=== PATIENT | male | born 2000 | race Asian ===

== ENCOUNTER 2020-03-14 21:08 | Inpatient (IN) | payer MEDICAID, OTHER ==
[~2020-03-14] VITALS: Ht 172.7 cm; Wt 75.0 kg
[~2020-03-14 21:08] MED LIST: ACET1TAB12 PO
[2020-03-14] MEDS ORDERED: ondansetron/PF 4mg/2ml inj IV ONE (21:50)
[2020-03-14] MEDS ORDERED: morphine 4 MG/ML inj SYRINge IV ONE (21:50)
[2020-03-14] MEDS ORDERED: ketorolac tromethamine 15mg/ml inj. IV ONE (22:10)
[2020-03-14 22:11] LABS: CLARITY,URINE CLEAR (Clear); COLOR,URINE YELLOW (Yellow); GLUCOSE, URINE NEGATIVE (Neg); KETONES,URINE 15 mg/dl (Neg); LEUKOCYTE ESTERASE ,URINE NEGATIVE (Neg); NITRITES, URINE NEGATIVE (Neg); OCCULT BLOOD,URINE TRACE-INTACT (Neg); PROTEIN,URINE 30 mg/dl (Neg)
[2020-03-14 22:12] LABS: BASOPHILS % (AUTO) 0.3 % (0-1); EOSINOPHILS % (AUTO) 0 % (0-6); HEMATOCRIT 40.9 % (42.0-52.0); HEMOGLOBIN 13.3 g/dl (14.0-17.9); LYMPHOCYTES # (AUTO) 1.1 X10'3 (1.1-4.8); LYMPHOCYTES % (AUTO) 7.2 % (21-51); MEAN CORPUSCULAR HEMOGLOBIN 24.7 PG (27.0-31.0); MEAN CORPUSCULAR HGB CONC 32.6 g/dL (33.0-36.5); MEAN CORPUSCULAR VOLUME 75.8 FL (78-98); MEAN PLATELET VOLUME 8.2 FL (7.4-10.4); MONOCYTES # (AUTO) 1.6 X10'3 (0-0.9); MONOCYTES % (AUTO) 10.4 % (2-12); NEUTROPHILS # (AUTO) 12.5 X10'3 (1.8-7.7); NEUTROPHILS % (AUTO) 82.1 % (42-75); PLATELET COUNT 243 X10'3 (140-440); RED CELL DISTRIBUTION WIDTH 13.8 % (11.5-14.5); WHITE BLOOD COUNT 15.2 X10'3 (4.5-11.0)
[2020-03-14 22:15] LABS: UA COLLECTION TYPE URINAL
[2020-03-14 22:16] LABS: BACTERIA,URINE NONE SEEN /HPF (Neg); RBC,URINE 0-2 /HPF (0-2); SQUAMOUS EPITHELIAL CELL,UR FEW /LPF (FEW); WBC,URINE NONE SEEN /HPF (0-4)
[2020-03-14 22:30] LABS: ALANINE AMINOTRANSFERASE 23 U/L (12-78); ALBUMIN 3.8 G/DL (3.4-5.0); ALBUMIN/GLOBULIN RATIO 0.8 (1.1-1.5); ALKALINE PHOSPHATASE 76 IU/L (20-180); ANION GAP 12 (8-16); ASPARTATE AMINO TRANSFERASE 23 U/L (10-37); BILIRUBIN,TOTAL 1.2 MG/DL (0.1-1.0); BLOOD UREA NITROGEN 12 MG/DL (7-18); BUN/CREATININE RATIO 8.6 (5.4-32.0); CHLORIDE 98 MMOL/L (99-107); GLUCOSE 123 MG/DL (70-104); LIPASE 68 U/L (73-393); POTASSIUM 3.4 MMOL/L (3.5-5.1); SODIUM 134 MMOL/L (135-145); TOTAL CARBON DIOXIDE 23.6 MMOL/L (24-32); TOTAL PROTEIN 8.7 G/DL (6.4-8.2); eGFR 65 ML/MIN
--- NOTE | 2020-03-14 22:34 | NUR ---
Pt returned from CT. He asked for a blanket, given a sheet due to temp of 101.5 F. AISHWARYA Ortega gave verbal order for 15mg toradol IVP and to maintain NPO.
[2020-03-14] MEDS ORDERED: normal saline 1000ML IV soln IVB ONE ×2 (22:40→22:50)
[2020-03-14] MEDS ORDERED: NO HOME MEDS (22:43)
[2020-03-14] MEDS ORDERED: morphine 2 MG/ML inj. syringe IV ONE (22:55)
[2020-03-14] MEDS: normal saline 1000ml 1,000 ML IV SCH (23:27)
[2020-03-14] MEDS ORDERED: potassium CL 10mEq/100ml bag 100 ML IV PRN ×2 (23:30)
[2020-03-14] MEDS ORDERED: potassium Cl 20 mEq SR tablet PO PRN ×2 (23:30)
[2020-03-14] MEDS ORDERED: morphine 2 MG/ML inj. syringe IV PRN (23:30)
[2020-03-15] VITALS (28 sets, daily range): BP systolic 91–119; BP diastolic 46–65
[2020-03-15] MEDS ORDERED: ketorolac tromethamine 15mg/ml inj. IV ONE
[2020-03-15] MEDS ORDERED: piperacillin/tazo 3.375gm/50ml 50 ML IV SCH
--- NOTE | 2020-03-15 00:15 | NUR ---
PATIENT ARRIVED ON THE UNIT STILL PAINFUL. ASSUMED CARE AND REPORT RECEIVED FROM KYRA MONTILLA IN ER. WILL CONTINUE TO MONITOR PATIENT AND ADMINISTER MEDICATION ORDERED BY MD.
[2020-03-15] MEDS: morphine 2 MG/ML inj. syringe IV PRN ×5 (03:44→23:21)
[2020-03-15 04:53] LABS: BASOPHILS % (AUTO) 0.1 % (0-1); EOSINOPHILS % (AUTO) 0 % (0-6); HEMATOCRIT 39.1 % (42.0-52.0); HEMOGLOBIN 12.3 g/dl (14.0-17.9); LYMPHOCYTES # (AUTO) 1.5 X10'3 (1.1-4.8); MEAN CORPUSCULAR HEMOGLOBIN 24.1 PG (27.0-31.0); MEAN CORPUSCULAR HGB CONC 31.5 g/dL (33.0-36.5); MEAN CORPUSCULAR VOLUME 76.5 FL (78-98); MEAN PLATELET VOLUME 8.5 FL (7.4-10.4); MONOCYTES # (AUTO) 1.5 X10'3 (0-0.9); NEUTROPHILS # (AUTO) 13.7 X10'3 (1.8-7.7); NEUTROPHILS % (AUTO) 81.9 % (42-75); PLATELET COUNT 237 X10'3 (140-440); RED BLOOD COUNT 5.11 X10'6 (4.70-6.10); RED CELL DISTRIBUTION WIDTH 14.1 % (11.5-14.5); WHITE BLOOD COUNT 16.8 X10'3 (4.5-11.0)
[2020-03-15] MEDS: normal saline 1000ml 1,000 ML IV SCH ×2 (05:03→19:28)
[2020-03-15 05:07] LABS: ALANINE AMINOTRANSFERASE 20 U/L (12-78); ALBUMIN 3.2 G/DL (3.4-5.0); ALBUMIN/GLOBULIN RATIO 0.7 (1.1-1.5); ALKALINE PHOSPHATASE 66 IU/L (20-180); ANION GAP 8 (8-16); ASPARTATE AMINO TRANSFERASE 17 U/L (10-37); BILIRUBIN,TOTAL 1.2 MG/DL (0.1-1.0); BLOOD UREA NITROGEN 8 MG/DL (7-18); BUN/CREATININE RATIO 5.2 (5.4-32.0); CALCIUM 8.2 MG/DL (8.5-10.1); CHLORIDE 102 MMOL/L (99-107); CREATININE 1.53 MG/DL (0.60-1.10); GLUCOSE 116 MG/DL (70-104); POTASSIUM 3.7 MMOL/L (3.5-5.1); SODIUM 137 MMOL/L (135-145); TOTAL CARBON DIOXIDE 26.9 MMOL/L (24-32); TOTAL PROTEIN 7.8 G/DL (6.4-8.2); eGFR 59 ML/MIN
--- NOTE | 2020-03-15 06:28 | NUR ---
Problems reprioritized. Patient report given, questions answered & plan of care reviewed with NISHANT MONTILLA.
[2020-03-15] MEDS ORDERED: acetaminophen 325mg tablet PO ONE (06:40)
--- NOTE | 2020-03-15 06:41 | NUR ---
Pt. has a fever. Called Jerrell to obtain Tylenol order. Jerrell stated give one time tyelnol "after making sure that it was ok with charge nurse to give before surgery." Spoke with OR charge nurse- states operation planned for around 10-11am. States to call anesthesiologist regarding Tylenol at [phone] - [place].
[2020-03-15] MEDS: K and/or MAG REPLACEMENT MC SCH ×2 (08:00→19:21)
[2020-03-15] MEDS: piperacillin/tazo 3.375gm/50ml 50 ML IV SCH ×3 (08:23→23:21)
--- NOTE | 2020-03-15 11:15 | NUR ---
PT. REMOVED OFF FLOOR TO GO TO OR.
[2020-03-15] MEDS ORDERED: BUPIVAcaine/PF 2.5 mg/ml (0.25%) 30ml vial ONE (12:10)
[2020-03-15] MEDS ORDERED: famotidine/PF 10 mg/ml inj IV ONE (12:16)
[2020-03-15] MEDS ORDERED: midazolam 2 mg/2 ml injection ONE (12:20)
[2020-03-15] MEDS ORDERED: fentaNYL /PF 50mcg/ml 5ml ampule ONE (12:22)
[2020-03-15] MEDS ORDERED: ceFOXitin 1000 MG inj ONE ×2 (12:48)
[2020-03-15] MEDS ORDERED: ondansetron/PF 4mg/2ml inj ONE (12:48)
[2020-03-15] MEDS ORDERED: dexamethasone sod phosphate 4mg/ml inj. ONE (12:48)
[2020-03-15] MEDS ORDERED: glycopyrrolate 0.2mg/ml inj ONE (12:51)
[2020-03-15] MEDS ORDERED: neostigmine methylsulfate 1 MG/ML 10ml vial ONE (12:51)
--- NOTE | 2020-03-15 13:20 | NUR ---
RECEIVED FROM OR VIA BED ACCOMPANIED BY ANESTHESIOLOGIST DR HECTOR, REPORT GIVEN. PT DROWSY BUT AROUSES WITH NO COMPLAINT OF PAIN AT THIS TIME. 20 GAUGE PIV R AC PATENT AND RUNNING LR AT 100 ML/HR. LG BANDAID DRESSING X 3 TO ABD CDI, ABD SOFT, SKIN PINK AND WARM, GOOD CAP REFILL, GOOD PERIPHERAL PULSES, VSS, SCDS ON. RESTING COMFORTABLY.
[2020-03-15] MEDS ORDERED: acetaminophen 1,000mg/100ml IV 100 ML IV PRN (13:40)
[2020-03-15] MEDS ORDERED: morphine 2 MG/ML inj. syringe IV PRN (13:40)
[2020-03-15] MEDS ORDERED: ondansetron/PF 4mg/2ml inj IV PRN (13:40)
[2020-03-15] MEDS ORDERED: ringers solution, lacted 1,000 ML IV SCH (13:40)
[2020-03-15] MEDS ORDERED: proCHLORperazine 10 MG/2 ml inj IV PRN (13:40)
[2020-03-15] MEDS ORDERED: morphine 4 MG/ML inj SYRINge IV PRN (13:40)
[2020-03-15] MEDS ORDERED: meperidine/PF 25mg/ml syringe IV PRN ×2 (13:40)
[2020-03-15] MEDS: meperidine/PF 25mg/ml syringe IV PRN ×2 (14:19→14:42)
--- NOTE | 2020-03-15 15:40 | NUR ---
TRANSFERRED VIA BED ON 4 L O2, REPORT GIVEN. PT DROWSY BUT AROUSES WITH COMPLAINT OF PAIN AT A LEVEL 2 AT THIS TIME. 20 GAUGE PIV R AC PATENT AND RUNNING LR AT 100 ML/HR. LG BANDAID DRESSING X 3 TO ABD CDI, ABD SOFT, SKIN PINK AND WARM, GOOD CAP REFILL, GOOD PERIPHERAL PULSES, VSS, SCDS ON. RESTING COMFORTABLY. TOLERATING FLUIDS
--- NOTE | 2020-03-15 18:23 | NUR ---
GAVE REPORT TO PRUDENCE ROLDAN.
--- NOTE | 2020-03-15 18:33 | NUR ---
Patient in room [facility]. I have received report from NISHANT MONTILLA and had the opportunity to ask questions and assume patient care.
[2020-03-16] VITALS (7 sets, daily range): BP systolic 100–119; BP diastolic 56–78
[2020-03-16] MEDS: normal saline 1000ml 1,000 ML IV SCH ×2 (03:58→14:35)
[2020-03-16] MEDS: morphine 2 MG/ML inj. syringe IV PRN ×5 (04:01→22:47)
[2020-03-16 05:22] LABS: BASOPHILS % (AUTO) 0.1 % (0-1); EOSINOPHILS % (AUTO) 0 % (0-6); LYMPHOCYTES # (AUTO) 0.8 X10'3 (1.1-4.8); LYMPHOCYTES % (AUTO) 5.1 % (21-51); MONOCYTES # (AUTO) 1.3 X10'3 (0-0.9)
[2020-03-16 05:25] LABS: HEMATOCRIT 34.1 % (42.0-52.0); HEMOGLOBIN 10.9 g/dl (14.0-17.9); MEAN CORPUSCULAR HEMOGLOBIN 24.3 PG (27.0-31.0); MEAN CORPUSCULAR HGB CONC 32.1 g/dL (33.0-36.5); MEAN CORPUSCULAR VOLUME 75.9 FL (78-98); MEAN PLATELET VOLUME 8.7 FL (7.4-10.4); MONOCYTES % (AUTO) 8.6 % (2-12); NEUTROPHILS # (AUTO) 13.3 X10'3 (1.8-7.7); NEUTROPHILS % (AUTO) 86.2 % (42-75); PLATELET COUNT 212 X10'3 (140-440); RED CELL DISTRIBUTION WIDTH 14.3 % (11.5-14.5); WHITE BLOOD COUNT 15.4 X10'3 (4.5-11.0)
[2020-03-16 05:40] LABS: ALANINE AMINOTRANSFERASE 15 U/L (12-78); ALBUMIN 2.6 G/DL (3.4-5.0); ALBUMIN/GLOBULIN RATIO 0.6 (1.1-1.5); ALKALINE PHOSPHATASE 51 IU/L (20-180); ANION GAP 8 (8-16); ASPARTATE AMINO TRANSFERASE 13 U/L (10-37); BILIRUBIN,TOTAL 0.6 MG/DL (0.1-1.0); BLOOD UREA NITROGEN 9 MG/DL (7-18); BUN/CREATININE RATIO 7.2 (5.4-32.0); CALCIUM 8.7 MG/DL (8.5-10.1); CHLORIDE 105 MMOL/L (99-107); CREATININE 1.25 MG/DL (0.60-1.10); GLUCOSE 150 MG/DL (70-104); POTASSIUM 4.1 MMOL/L (3.5-5.1); SODIUM 138 MMOL/L (135-145); TOTAL CARBON DIOXIDE 25.2 MMOL/L (24-32); eGFR 74 ML/MIN
--- NOTE | 2020-03-16 06:15 | NUR ---
Problems reprioritized. Patient report given, questions answered & plan of care reviewed with NISHANT MONTILLA.
[2020-03-16] MEDS: K and/or MAG REPLACEMENT MC SCH ×2 (08:00→20:00)
[2020-03-16] MEDS: piperacillin/tazo 3.375gm/50ml 50 ML IV SCH ×2 (09:07→16:40)
--- NOTE | 2020-03-16 10:01 | NUR ---
Pt. refusing to walk/ambulate. Educated on the benefits of ambulation. Pain is controlled at this moment. Pt. states he will walk at 11 am. Encouraged to ambulate 3x before 7pm.
--- NOTE | 2020-03-16 18:26 | NUR ---
GAVE REPORT TO PRUDENCE ROLDAN.
--- NOTE | 2020-03-16 18:32 | NUR ---
Patient in room [facility]. I have received report from NISHANT MONTILLA and had the opportunity to ask questions and assume patient care.
[2020-03-17] MEDS: piperacillin/tazo 3.375gm/50ml 50 ML IV SCH ×4 (00:18→23:46)
[2020-03-17] MEDS: normal saline 1000ml 1,000 ML IV SCH ×3 (00:24→18:43)
[2020-03-17 00:33] VITALS: BP 106/70
[2020-03-17 06:26] LABS: BASOPHILS % (AUTO) 0.2 % (0-1); EOSINOPHILS % (AUTO) 0.1 % (0-6); HEMATOCRIT 34.2 % (42.0-52.0); LYMPHOCYTES # (AUTO) 1.6 X10'3 (1.1-4.8); LYMPHOCYTES % (AUTO) 12.3 % (21-51); MEAN CORPUSCULAR HEMOGLOBIN 24.6 PG (27.0-31.0); MEAN CORPUSCULAR HGB CONC 32.3 g/dL (33.0-36.5); MEAN CORPUSCULAR VOLUME 76.2 FL (78-98); MEAN PLATELET VOLUME 8.2 FL (7.4-10.4); MONOCYTES # (AUTO) 1.3 X10'3 (0-0.9); MONOCYTES % (AUTO) 10.2 % (2-12); NEUTROPHILS # (AUTO) 9.9 X10'3 (1.8-7.7); NEUTROPHILS % (AUTO) 77.2 % (42-75); PLATELET COUNT 261 X10'3 (140-440); RED BLOOD COUNT 4.49 X10'6 (4.70-6.10); RED CELL DISTRIBUTION WIDTH 14.1 % (11.5-14.5); WHITE BLOOD COUNT 12.9 X10'3 (4.5-11.0)
--- NOTE | 2020-03-17 06:28 | NUR ---
Problems reprioritized. Patient report given, questions answered & plan of care reviewed with Dai Cantu.
--- NOTE | 2020-03-17 06:29 | NUR ---
Patient in room [facility]. I have received report from ROLDAN Barraza and had the opportunity to ask questions and assume patient care.
[2020-03-17 06:32] LABS: ALANINE AMINOTRANSFERASE 20 U/L (12-78); ALBUMIN 2.4 G/DL (3.4-5.0); ALBUMIN/GLOBULIN RATIO 0.6 (1.1-1.5); ALKALINE PHOSPHATASE 44 IU/L (20-180); ANION GAP 6 (8-16); ASPARTATE AMINO TRANSFERASE 16 U/L (10-37); BILIRUBIN,TOTAL 0.5 MG/DL (0.1-1.0); BLOOD UREA NITROGEN 12 MG/DL (7-18); BUN/CREATININE RATIO 8.8 (5.4-32.0); CALCIUM 8.6 MG/DL (8.5-10.1); CHLORIDE 108 MMOL/L (99-107); CREATININE 1.36 MG/DL (0.60-1.10); GLUCOSE 110 MG/DL (70-104); POTASSIUM 3.8 MMOL/L (3.5-5.1); SODIUM 141 MMOL/L (135-145); TOTAL CARBON DIOXIDE 26.8 MMOL/L (24-32); TOTAL PROTEIN 6.4 G/DL (6.4-8.2); eGFR 68 ML/MIN
[2020-03-17] MEDS: morphine 2 MG/ML inj. syringe IV PRN (07:21)
[2020-03-17 07:30] VITALS: BP 114/68
[2020-03-17] MEDS: K and/or MAG REPLACEMENT MC SCH ×2 (08:00→20:00)
[2020-03-17] MEDS: ondansetron/PF 4mg/2ml inj IV PRN (10:06)
[2020-03-17 12:00] VITALS: BP 109/57
[2020-03-17] MEDS: HYDROcodone/acetaminophen 10/325mg tab PO PRN ×2 (12:35→18:43)
--- NOTE | 2020-03-17 18:48 | NUR ---
Problems reprioritized. Patient report given, questions answered & plan of care reviewed with ROLDAN Lovell. Pt had temp of 100 cooling measures provided. medicated for pain x3 this shift. c/o having loose stools x4, diet advance to full liquids.
--- NOTE | 2020-03-17 18:50 | NUR ---
Patient in room [facility]. I have received report from JOAQUIN MONTILLA and had the opportunity to ask questions and assume patient care.
[2020-03-17 19:32] VITALS: BP 127/78
[2020-03-17] MEDS: lactobacillus rhamnosus 10,000 MMU CELLS/CAPSULE PO SCH (20:16)
--- NOTE | 2020-03-17 23:20 | NUR ---
CALLED DR. BAIN AND WAS INFORMED ABOUT PATIENT FEBRILE T 102.8 WITH ORDER TO GIVE TYLENOL 650MG Q4H PRN FOR TEMP 101.5 AND ABOVE.
[2020-03-17 23:30] VITALS: BP 117/73
[2020-03-17] MEDS: acetaminophen 325mg tablet PO PRN (23:46)
[2020-03-18] MEDS: HYDROcodone/acetaminophen 10/325mg tab PO PRN ×4 (04:15→22:21)
[2020-03-18] MEDS: normal saline 1000ml 1,000 ML IV SCH ×2 (04:23→16:37)
--- NOTE | 2020-03-18 06:00 | NUR ---
Patient in room [facility]. I have received report from Liliya MONTILLA and had the opportunity to ask questions and assume patient care.
[2020-03-18 06:04] LABS: BASOPHILS % (AUTO) 0.2 % (0-1); EOSINOPHILS # (AUTO) 0.2 X10'3 (0-0.9); EOSINOPHILS % (AUTO) 1.5 % (0-6); HEMATOCRIT 36.2 % (42.0-52.0); HEMOGLOBIN 11.7 g/dl (14.0-17.9); LYMPHOCYTES # (AUTO) 1.7 X10'3 (1.1-4.8); LYMPHOCYTES % (AUTO) 15.4 % (21-51); MEAN CORPUSCULAR HEMOGLOBIN 24.6 PG (27.0-31.0); MEAN CORPUSCULAR HGB CONC 32.3 g/dL (33.0-36.5); MEAN CORPUSCULAR VOLUME 76.2 FL (78-98); MEAN PLATELET VOLUME 8.4 FL (7.4-10.4); MONOCYTES # (AUTO) 2.3 X10'3 (0-0.9); MONOCYTES % (AUTO) 21.3 % (2-12); NEUTROPHILS # (AUTO) 6.8 X10'3 (1.8-7.7); NEUTROPHILS % (AUTO) 61.6 % (42-75); PLATELET COUNT 295 X10'3 (140-440); RED BLOOD COUNT 4.75 X10'6 (4.70-6.10); RED CELL DISTRIBUTION WIDTH 14.4 % (11.5-14.5)
--- NOTE | 2020-03-18 06:23 | NUR ---
Problems reprioritized. Patient report given, questions answered & plan of care reviewed with TORI MONTILLA.
[2020-03-18 06:26] LABS: ALANINE AMINOTRANSFERASE 86 U/L (12-78); ALBUMIN 2.5 G/DL (3.4-5.0); ALBUMIN/GLOBULIN RATIO 0.6 (1.1-1.5); ALKALINE PHOSPHATASE 64 IU/L (20-180); ANION GAP 11 (8-16); ASPARTATE AMINO TRANSFERASE 59 U/L (10-37); BILIRUBIN,TOTAL 1.7 MG/DL (0.1-1.0); BLOOD UREA NITROGEN 5 MG/DL (7-18); BUN/CREATININE RATIO 3.9 (5.4-32.0); CHLORIDE 103 MMOL/L (99-107); CREATININE 1.28 MG/DL (0.60-1.10); GLUCOSE 106 MG/DL (70-104); POTASSIUM 3.3 MMOL/L (3.5-5.1); SODIUM 138 MMOL/L (135-145); TOTAL CARBON DIOXIDE 24.2 MMOL/L (24-32); TOTAL PROTEIN 6.7 G/DL (6.4-8.2); eGFR 72 ML/MIN
[2020-03-18 07:26] VITALS: BP 106/62
[2020-03-18] MEDS: piperacillin/tazo 3.375gm/50ml 50 ML IV SCH ×2 (07:31→16:30)
[2020-03-18] MEDS: ondansetron/PF 4mg/2ml inj IV PRN (07:31)
[2020-03-18] MEDS: lactobacillus rhamnosus 10,000 MMU CELLS/CAPSULE PO SCH ×2 (07:31→20:27)
[2020-03-18] MEDS: morphine 2 MG/ML inj. syringe IV PRN (07:31)
[2020-03-18] MEDS: K and/or MAG REPLACEMENT MC SCH ×2 (07:45→20:00)
[2020-03-18 07:56] LABS: TOTAL CELLS COUNTED 100
[2020-03-18 07:57] LABS: MICROCYTOSIS 1+; PLATELET ESTIMATE NORMAL
[2020-03-18 07:58] LABS: POLYCHROMASIA FEW
[2020-03-18 11:25] VITALS: BP_SYST 101; BP_SYST 127; BP_DIAS 55; BP_DIAS 76
[2020-03-18] MEDS ORDERED: potassium Cl 20 mEq SR tablet PO PRN (11:35)
[2020-03-18] MEDS ORDERED: magnesium 4gm in 100ml NS 100 ML IV PRN (11:35)
[2020-03-18] MEDS ORDERED: magnesium Cl slow-release 64mg tablet PO PRN (11:35)
[2020-03-18] MEDS ORDERED: potassium CL 10mEq/100ml bag 100 ML IV PRN (11:35)
[2020-03-18] MEDS: potassium Cl 20 mEq SR tablet PO PRN ×3 (11:53→20:27)
[2020-03-18] MEDS ORDERED: docusate sod 100mg capsule PO PRN (17:15)
--- NOTE | 2020-03-18 18:00 | NUR ---
Patient in room [facility]. I have received report from Tanna MONTILLA and had the opportunity to ask questions and assume patient care.
--- NOTE | 2020-03-18 18:16 | NUR ---
Problems reprioritized. Patient report given, questions answered & plan of care reviewed with Lesly MONTILLA.
--- NOTE | 2020-03-18 19:21 | NUR ---
called dr melchor to report a temp of 102.7 he said to ordered blood cultures
[2020-03-18 19:35] VITALS: BP 111/71
[2020-03-18] MEDS: acetaminophen 325mg tablet PO PRN (23:07)
[2020-03-19] VITALS: BP 114/69
[2020-03-19] MEDS: piperacillin/tazo 3.375gm/50ml 50 ML IV SCH ×3 (01:01→16:39)
[2020-03-19] MEDS: normal saline 1000ml 1,000 ML IV SCH ×3 (02:21→16:44)
[2020-03-19] MEDS: HYDROcodone/acetaminophen 10/325mg tab PO PRN ×5 (02:21→21:35)
[2020-03-19 05:26] LABS: BASOPHILS % (AUTO) 0.2 % (0-1); EOSINOPHILS # (AUTO) 0.3 X10'3 (0-0.9); EOSINOPHILS % (AUTO) 1.6 % (0-6); HEMATOCRIT 36.9 % (42.0-52.0); HEMOGLOBIN 11.5 g/dl (14.0-17.9); LYMPHOCYTES # (AUTO) 1.8 X10'3 (1.1-4.8); LYMPHOCYTES % (AUTO) 11.9 % (21-51); MEAN CORPUSCULAR HEMOGLOBIN 23.6 PG (27.0-31.0); MEAN CORPUSCULAR HGB CONC 31.1 g/dL (33.0-36.5); MEAN PLATELET VOLUME 8.1 FL (7.4-10.4); MONOCYTES # (AUTO) 2.8 X10'3 (0-0.9); MONOCYTES % (AUTO) 18.4 % (2-12); NEUTROPHILS # (AUTO) 10.5 X10'3 (1.8-7.7); NEUTROPHILS % (AUTO) 67.9 % (42-75); PLATELET COUNT 303 X10'3 (140-440); RED BLOOD COUNT 4.86 X10'6 (4.70-6.10); RED CELL DISTRIBUTION WIDTH 14.6 % (11.5-14.5); WHITE BLOOD COUNT 15.5 X10'3 (4.5-11.0)
[2020-03-19 05:37] LABS: ALANINE AMINOTRANSFERASE 48 U/L (12-78); ALBUMIN 2.3 G/DL (3.4-5.0); ALBUMIN/GLOBULIN RATIO 0.5 (1.1-1.5); ALKALINE PHOSPHATASE 53 IU/L (20-180); ANION GAP 7 (8-16); ASPARTATE AMINO TRANSFERASE 17 U/L (10-37); BILIRUBIN,TOTAL 1.1 MG/DL (0.1-1.0); CALCIUM 8.2 MG/DL (8.5-10.1); CHLORIDE 105 MMOL/L (99-107); CREATININE 1.39 MG/DL (0.60-1.10); GLUCOSE 99 MG/DL (70-104); POTASSIUM 3.7 MMOL/L (3.5-5.1); SODIUM 138 MMOL/L (135-145); TOTAL CARBON DIOXIDE 26.3 MMOL/L (24-32); TOTAL PROTEIN 6.8 G/DL (6.4-8.2); eGFR 66 ML/MIN
[2020-03-19 06:05] LABS: BLOOD UREA NITROGEN 5 MG/DL (7-18); BUN/CREATININE RATIO 3.6 (5.4-32.0)
--- NOTE | 2020-03-19 06:30 | NUR ---
Problems reprioritized. Patient report given, questions answered & plan of care reviewed with Mindy MONTILLA.
--- NOTE | 2020-03-19 06:33 | NUR ---
Patient in room [facility]. I have received report from Lesly MONTILLA and had the opportunity to ask questions and assume patient care.
[2020-03-19] MEDS: lactobacillus rhamnosus 10,000 MMU CELLS/CAPSULE PO SCH ×2 (06:49→19:06)
[2020-03-19 07:00] VITALS: BP 111/70
[2020-03-19 07:13] LABS: LARGE PLATELETS FEW; MICROCYTOSIS 1+; PLATELET ESTIMATE NORMAL; TOTAL CELLS COUNTED 100
[2020-03-19] MEDS: K and/or MAG REPLACEMENT MC SCH ×2 (08:00→20:00)
[2020-03-19] MEDS: magnesium hydroxide 30ml (MOM) UD suspension PO SCH (08:00)
[2020-03-19 11:35] VITALS: BP 104/60
--- NOTE | 2020-03-19 14:32 | NUR ---
Initial: Pt admit with acute appendicitis, now s/p lap appendectomy. Pt was initially advanced to clear liquids diet, documented with 100% PO intake the first two meals however down to 0-25% PO intake and now on a full liquid diet not meeting nutrient needs. Pt seen at bedside states he has had a low appetite for about a week [employer] and is still with a low appetite. Per pt, he gets full following little PO intake. RD encouraged PO intake and discussed the importance of protein for wound healing. Pt agrees to yogurt BIDBD and a vanilla Magic Cup daily. Pt reports UBW 165-170 lbs and denies recent wt loss; current scaled weight is 100% reported UBW. Pt denies food allergies or difficulty chewing/swallowing. Pt reports diarrhea and agrees to applesauce however unable to send on current diet order. Food preferences were d/w dietary as well as recommendation for a banana smoothie with dinner tonight to assist with bowel regularity. Pt provided with RD contact information and encouraged to reach out if needed. Will continue to follow. Recommendations: 1) Advance to regular diet as medically indicated 2) Yogurt BIDBD, vanilla Magic Cup q lunch; monitor need for ONS 3) Bowel care PRN 4) Scaled weights per rx Addendum: 03/19/20 at [address] Amended: Links added.
--- NOTE | 2020-03-19 15:59 | NUR ---
patient up ambulating in hallway. medicated for pain x3 with effect. No more drainage observed from belly site. Seen by Dr castro. Diet advanced to regular diet. continues with Zosyn. Multiple BM.s reported Dr Castro aware. will continue to monitor.
[2020-03-19 18:00] VITALS: BP 111/72
--- NOTE | 2020-03-19 18:00 | NUR ---
Patient in room [facility]. I have received report from Mindy MONTILLA and had the opportunity to ask questions and assume patient care.
--- NOTE | 2020-03-19 18:44 | NUR ---
Problems reprioritized. Patient report given, questions answered & plan of care reviewed with ines MONTILLA.
--- NOTE | 2020-03-19 21:27 | NUR ---
Patient in room [facility]. I have received report from ROLDAN Grace and had the opportunity to ask questions and assume patient care.
--- NOTE | 2020-03-19 21:36 | NUR ---
Problems reprioritized. Patient report given, questions answered & plan of care reviewed with Lilliana MONTILLA.
--- NOTE | 2020-03-19 21:47 | NUR ---
Patient states feels warm. Temp 100.2. Want hot pack and/or warm blanket for pain. Advised pt to refrain from additional heat at this time, walk and use incentive spirometer. [place] administered.
[2020-03-19] MEDS: ondansetron/PF 4mg/2ml inj IV PRN (22:53)
[2020-03-19] MEDS: morphine 2 MG/ML inj. syringe IV PRN (22:54)
[2020-03-19 23:24] VITALS: BP 122/73
[2020-03-20] MEDS: normal saline 1000ml 1,000 ML IV SCH ×3 (00:50→16:22)
[2020-03-20] MEDS: HYDROcodone/acetaminophen 10/325mg tab PO PRN ×4 (03:23→19:44)
--- NOTE | 2020-03-20 05:00 | NUR ---
Pt c/o pain 7/10 after 1.5 hours of [place] 10 administration. Obtained order for Morphine 1mg once. Pt states no longer wants morphine. Req bandages to abdomen to be changed and states he feels bloated. Abdomen firm but not distended. 3 bandaids to abdomen changed. [place] intact. Temp 100.6. Will administer tylenol per order.
[2020-03-20] MEDS ORDERED: morphine 2 MG/ML inj. syringe IV ONE (05:25)
[2020-03-20 05:40] LABS: BASOPHILS % (AUTO) 0.2 % (0-1); EOSINOPHILS # (AUTO) 0.6 X10'3 (0-0.9); EOSINOPHILS % (AUTO) 3.3 % (0-6); HEMATOCRIT 37.7 % (42.0-52.0); HEMOGLOBIN 11.9 g/dl (14.0-17.9); LYMPHOCYTES # (AUTO) 2.3 X10'3 (1.1-4.8); LYMPHOCYTES % (AUTO) 12.6 % (21-51); MEAN CORPUSCULAR HEMOGLOBIN 24.1 PG (27.0-31.0); MEAN CORPUSCULAR HGB CONC 31.6 g/dL (33.0-36.5); MEAN CORPUSCULAR VOLUME 76.3 FL (78-98); MEAN PLATELET VOLUME 8.3 FL (7.4-10.4); MONOCYTES # (AUTO) 1.9 X10'3 (0-0.9); MONOCYTES % (AUTO) 10.3 % (2-12); NEUTROPHILS # (AUTO) 13.3 X10'3 (1.8-7.7); NEUTROPHILS % (AUTO) 73.6 % (42-75); PLATELET COUNT 403 X10'3 (140-440); RED BLOOD COUNT 4.94 X10'6 (4.70-6.10); RED CELL DISTRIBUTION WIDTH 14.3 % (11.5-14.5); WHITE BLOOD COUNT 18.1 X10'3 (4.5-11.0)
[2020-03-20] MEDS: acetaminophen 325mg tablet PO PRN (05:48)
--- NOTE | 2020-03-20 06:00 | NUR ---
Patient in room [facility]. I have received report from Lilliana Zaidi RN and had the opportunity to ask questions and assume patient care.
[2020-03-20 06:06] LABS: ALANINE AMINOTRANSFERASE 42 U/L (12-78); ALBUMIN 2.5 G/DL (3.4-5.0); ALBUMIN/GLOBULIN RATIO 0.5 (1.1-1.5); ALKALINE PHOSPHATASE 67 IU/L (20-180); ANION GAP 8 (8-16); ASPARTATE AMINO TRANSFERASE 24 U/L (10-37); BILIRUBIN,TOTAL 0.6 MG/DL (0.1-1.0); BLOOD UREA NITROGEN 4 MG/DL (7-18); BUN/CREATININE RATIO 3.3 (5.4-32.0); CALCIUM 8.4 MG/DL (8.5-10.1); CHLORIDE 103 MMOL/L (99-107); CREATININE 1.21 MG/DL (0.60-1.10); GLUCOSE 96 MG/DL (70-104); POTASSIUM 3.7 MMOL/L (3.5-5.1); SODIUM 137 MMOL/L (135-145); TOTAL PROTEIN 7.5 G/DL (6.4-8.2); eGFR 77 ML/MIN
--- NOTE | 2020-03-20 06:23 | NUR ---
Problems reprioritized. Patient report given, questions answered & plan of care reviewed with ROLDAN French.
[2020-03-20 07:00] VITALS: BP 112/71
--- NOTE | 2020-03-20 07:16 | NUR ---
radiology called asking to speak with MD Tk MD paged.
--- NOTE | 2020-03-20 07:53 | NUR ---
MD Frey alerted regarding ultrasound report, he is now aware.
[2020-03-20] MEDS: magnesium hydroxide 30ml (MOM) UD suspension PO SCH (08:00)
[2020-03-20] MEDS: K and/or MAG REPLACEMENT MC SCH ×2 (08:00→20:00)
[2020-03-20] MEDS: CefTRIAXone/D5W-Rocephin 1gm 50 ML IV SCH (08:23)
[2020-03-20] MEDS: lactobacillus rhamnosus 10,000 MMU CELLS/CAPSULE PO SCH ×2 (08:23→20:00)
[2020-03-20 11:00] VITALS: BP 107/63
--- NOTE | 2020-03-20 12:00 | NUR ---
MD Kendrick consulted with IR and MD Pretty and determined against draining fluid collection at this time, orders to return to previous regular diet.
[2020-03-20 13:26] LABS: C DIFF SPECIMEN=DIARRHEA? ACCEPTABLE; C DIFFICILE TOXINS A&B NEGATIVE (Neg)
[2020-03-20 13:27] LABS: C DIFF ANTIGEN NEGATIVE (NEGATIVE)
[2020-03-20 18:00] VITALS: BP 129/83
--- NOTE | 2020-03-20 18:15 | NUR ---
Patient in room [facility]. I have received report from Manolo MONTILLA and had the opportunity to ask questions and assume patient care.
--- NOTE | 2020-03-20 18:36 | NUR ---
Problems reprioritized. Patient report given, questions answered & plan of care reviewed with neel Tomlinson.
[2020-03-21] VITALS: BP 129/89
[2020-03-21] MEDS: normal saline 1000ml 1,000 ML IV SCH ×2 (00:16→10:35)
[2020-03-21] MEDS: HYDROcodone/acetaminophen 10/325mg tab PO PRN ×2 (00:28→04:34)
[2020-03-21 05:13] LABS: BASOPHILS % (AUTO) 0.2 % (0-1); EOSINOPHILS # (AUTO) 0.4 X10'3 (0-0.9); EOSINOPHILS % (AUTO) 3.2 % (0-6); HEMOGLOBIN 10.8 g/dl (14.0-17.9); LYMPHOCYTES # (AUTO) 1.4 X10'3 (1.1-4.8); LYMPHOCYTES % (AUTO) 11.6 % (21-51); MEAN CORPUSCULAR HEMOGLOBIN 24.3 PG (27.0-31.0); MEAN CORPUSCULAR HGB CONC 31.8 g/dL (33.0-36.5); MEAN CORPUSCULAR VOLUME 76.5 FL (78-98); MEAN PLATELET VOLUME 8.3 FL (7.4-10.4); MONOCYTES # (AUTO) 1.4 X10'3 (0-0.9); MONOCYTES % (AUTO) 10.8 % (2-12); NEUTROPHILS # (AUTO) 9.3 X10'3 (1.8-7.7); NEUTROPHILS % (AUTO) 74.2 % (42-75); PLATELET COUNT 400 X10'3 (140-440); RED BLOOD COUNT 4.45 X10'6 (4.70-6.10); RED CELL DISTRIBUTION WIDTH 14.3 % (11.5-14.5); WHITE BLOOD COUNT 12.5 X10'3 (4.5-11.0)
[2020-03-21 05:42] LABS: ALANINE AMINOTRANSFERASE 55 U/L (12-78); ALBUMIN 2.2 G/DL (3.4-5.0); ALBUMIN/GLOBULIN RATIO 0.4 (1.1-1.5); ALKALINE PHOSPHATASE 54 IU/L (20-180); ANION GAP 8 (8-16); ASPARTATE AMINO TRANSFERASE 43 U/L (10-37); BILIRUBIN,TOTAL 0.5 MG/DL (0.1-1.0); BLOOD UREA NITROGEN 6 MG/DL (7-18); BUN/CREATININE RATIO 6.1 (5.4-32.0); CALCIUM 8.6 MG/DL (8.5-10.1); CHLORIDE 103 MMOL/L (99-107); CREATININE 0.98 MG/DL (0.60-1.10); GLUCOSE 91 MG/DL (70-104); POTASSIUM 3.8 MMOL/L (3.5-5.1); SODIUM 137 MMOL/L (135-145); TOTAL CARBON DIOXIDE 26.4 MMOL/L (24-32); TOTAL PROTEIN 7.5 G/DL (6.4-8.2); eGFR > 90 ML/MIN
--- NOTE | 2020-03-21 06:25 | NUR ---
Problems reprioritized. Patient report given, questions answered & plan of care reviewed with Marissa MONTILLA.
--- NOTE | 2020-03-21 06:25 | NUR ---
Patient in room [facility]. I have received report from Lesly MONTILLA and had the opportunity to ask questions and assume patient care.
[2020-03-21 07:00] VITALS: BP 102/62
[2020-03-21] MEDS: magnesium hydroxide 30ml (MOM) UD suspension PO SCH (08:00)
[2020-03-21] MEDS: K and/or MAG REPLACEMENT MC SCH (08:00)
[2020-03-21] MEDS: lactobacillus rhamnosus 10,000 MMU CELLS/CAPSULE PO SCH (08:01)
[2020-03-21] MEDS: CefTRIAXone/D5W-Rocephin 1gm 50 ML IV SCH (08:01)
[2020-03-21 11:00] VITALS: BP 121/74
[2020-03-21] MEDS ORDERED: AMOX-419 PO (14:49)
--- NOTE | 2020-03-21 17:03 | NUR ---
Pt DC to home with mom. Pt is A & O x4, Pt states he still has diarrhea but is getting better. 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 Pt verbalizes understanding of all DC orders and had the opportunity to get all of his questions answered. Pt aware of the importance of following up with Dr. Moss and PCP. Pt was wheeled out to the front and will go get medications from pharmacy on his way home. Family member picked him up.
== END 2020-03-21 17:03 | disposition home or self-care (01) | DRG 710 ==
LOC: ER 21:09 → ED HOLD 23:27 → SUR 3N 03-15 00:15
PROVIDERS: ADMIT Internal Medicine; ATTEND Family Medicine
PROC: 0DTJ4ZZ Resection of Appendix, Percutaneous Endoscopic Approach (ICD-10-PCS; principal; 2020-03-16)
PROC: 0D9J4ZZ Drainage of Appendix, Percutaneous Endoscopic Approach (ICD-10-PCS; 2020-03-16)
DX: A41.9 Sepsis, unspecified organism (principal); K35.32 Acute appendicitis with perforation, localized peritonitis, and gangrene, without abscess; N17.9 Acute kidney failure, unspecified; Z03.818 Encounter for observation for suspected exposure to other biological agents ruled out
CPT/HCPCS: 36415; 74176; 76775; 80053; 81001; 83605; 83690; 84145; 85025; 87040; 87081; 87324; 87449; 87635; 99285; A4215; A4618; A7000; G0378; J0694; J0696; J1100; J1885; J2175; J2250; J2270; J2405; J2543; J2710; J3010; J3490; J7030; J7120